=== PATIENT | male | born 1950 | race Caucasian/White ===

== ENCOUNTER 2018-01-13 20:35 | Emergency (ER) | payer MEDICARE, BC ==
[2018-01-13] MEDS ORDERED: Sodium Chloride 0.9% 10 ML Syringe FLUSH PRN (20:48)
[2018-01-13] MEDS ORDERED: Sodium Chloride 0.9% 500 ML IV SCH (21:00)
[2018-01-13] MEDS ORDERED: Sodium Chloride 0.9% 1,000 ML IV ONE (21:15)
--- NOTE | 2018-01-13 22:02 | EDM.PDOC ---
ED HPI GENERAL MEDICAL PROBLEM - General Chief Complaint: Syncope Stated Complaint: [facility] Time Seen by Provider: 01/13/18 20:40 Source of Information: Reports: Patient, EMS History Limitations: Reports: No Limitations - History of Present Illness INITIAL COMMENTS - FREE TEXT/NARRATIVE: The patient presents by [facility] for near syncope. He was eating at a restaurant in [facility] and he got lightheaded and nauseated. He went to the bathroom because he thought he was going to vomit but he did not. He laid down and when he tried to get up he was lightheaded. He had no headache, chest pain , shortness of breath or abdominal pain. He is feeling better now. He had this before. He has been seen for this and actually had it happen in the doctors office before. He has a history of an PA with stents. Onset: Gradual Duration: Minutes: Severity: Moderate Improves with: Reports: None Worsens with: Reports: None Associated Symptoms: Reports: Nausea/Vomiting. Denies: Chest Pain, Headaches, Shortness of Breath - Related Data Allergies Allergy/AdvReac Type Severity Reaction Status Date / Time No Known Allergies Allergy Verified 01/13/18 20:47 Past Medical History Cardiovascular History: Reports: Hypertension, PA, Stents, Syncope Gastrointestinal History: Reports: Gastritis - Infectious Disease History Infectious Disease History: Reports: Chicken Pox, Measles - Past Surgical History Cardiovascular Surgical History: Reports: Coronary Artery Stent GI Surgical History: Reports: Colonoscopy Social & Family History - Tobacco Use Smoking Status *Q: Never Smoker Second Hand Smoke Exposure: No - Caffeine Use Caffeine Use: Reports: None - Alcohol Use Number of Drinks Per Day: 1 Date of Last Drink: 01/13/18 Time of Last Drink: 19:45 - Recreational Drug Use Recreational Drug Use: No ED ROS GENERAL - Review of Systems Review Of Systems: See Below Constitutional: Reports: No Symptoms HEENT: Reports: No Symptoms Respiratory: Reports: No Symptoms Cardiovascular: Reports: Lightheadedness Endocrine: Reports: No Symptoms GI/Abdominal: Reports: No Symptoms : Reports: No Symptoms Musculoskeletal: Reports: No Symptoms Skin: Reports: No Symptoms - Physical Exam Exam: See Below Exam Limited By: No Limitations General Appearance: Alert, No Apparent Distress Ears: Normal External Exam Nose: Normal Inspection Head Exam: Atraumatic, Normocephalic Neck: Normal Inspection Respiratory/Chest: No Respiratory Distress, Lungs Clear, Normal Breath Sounds Cardiovascular: Regular Rate, Rhythm, No Edema, No Murmur GI/Abdominal: Soft, Non-Tender, No Organomegaly, No Mass Neuro Exam (Abbreviated): Alert, Oriented, No Motor/Sensory Deficits Back Exam: Normal Inspection Extremities: Normal Inspection EKG INTERPRETATION EKG Date: 01/13/18 Time: 20:35 Rhythm: NSR Rate (Beats/Min): 60 [place]: Normal P-Wave: Present QRS: Normal ST-T: Normal QT: Normal EKG Interpretation Comments: Q waves in the inferior leads Course - Vital Signs Last Recorded V/S: Last Vital Signs Temp 97.6 F 01/13/18 20:40 Pulse 58 L 01/13/18 20:40 Resp 18 01/13/18 20:40 BP 113/69 01/13/18 20:40 Pulse Ox 95 01/13/18 20:40 Orthostatic Blood Pressure [ 86/54 Standing] Orthostatic Blood Pressure [ 107/66 Sitting] Orthostatic Blood Pressure [ 106/68 Supine] - Orders/Labs/Meds Orders: Active Orders 24 hr Category Date Time Status Cardiac Monitoring [RC] . DIRECTED Care 01/13/18 20:48 Active EKG 12 Lead [EKG Documentation Completion] [RC] URGENT Care 01/13/18 20:42 Active Orthostatic Vital Signs [RC] ASDIRECTED Care 01/13/18 21:29 Active Peripheral IV Care [RC] . DIRECTED Care 01/13/18 20:48 Active Sodium Chloride 0.9% [Normal Saline] 500 ml Med 01/13/18 21:00 Active IV .BOLUS Sodium Chloride 0.9% [Saline Flush] Med 01/13/18 20:48 Active 10 ml FLUSH ASDIRECTED PRN Peripheral IV Insertion Adult [OM.PC] Stat Oth 01/13/18 20:48 Ordered Medication Orders Sodium Chloride (Normal Saline) 500 mls @ 1,000 mls/hr IV .BOLUS ARCHANA Last Admin: 01/13/18 20:53 Dose: 1,000 mls/hr Sodium Chloride (Saline Flush) 10 ml FLUSH ASDIRECTED PRN PRN Reason: Keep Vein Open Last Admin: 01/13/18 20:54 Dose: 10 ml Labs: Laboratory Tests 01/13/18 01/13/18 Range/Units 20:35 20:35 WBC 10.60 H (4.23-9.07) K/mm3 RBC 4.53 L (4.63-6.08) M/mm3 Hgb 14.4 (13.7-17.5) gm/L Hct 42.4 (40.1-51.0) % MCV 93.6 H (79.0-92.2) fl MCH 31.8 (25.7-32.2) pg MCHC 34.0 (32.2-35.5) g/dl RDW Std Deviation 44.6 H (35.1-43.9) fL Plt Count 211 (163-337) K/mm3 MPV 9.6 (9.4-12.3) fl Neut % (Auto) 62.6 (34.0-67.9) % Lymph % (Auto) 25.2 (21.8-53.1) % [place] % (Auto) 10.7 (5.3-12.2) % Eos % (Auto) 0.8 (0.8-7.0) Baso % (Auto) 0.4 (0.1-1.2) % Neut # (Auto) 6.64 H (1.78-5.38) K/mm3 Lymph # (Auto) 2.67 (1.32-3.57) K/mm3 [place] # (Auto) 1.13 H (0.30-0.82) K/mm3 Eos # (Auto) 0.09 (0.04-0.54) K/mm3 Baso # (Auto) 0.04 (0.01-0.08) K/mm3 Sodium 139 (136-145) mEq/L Potassium 3.7 (3.5-5.1) mEq/L Chloride 105 (98-107) mEq/L Carbon Dioxide 24 (21-32) mEq/L Anion Gap 13.7 (5-15) BUN 28 H (7-18) mg/dL Creatinine 1.1 (0.7-1.3) mg/dL Est Cr Clr Drug Dosing 63.91 mL/min Estimated GFR (MDRD) > 60 (>60) mL/min BUN/Creatinine Ratio 25.5 H (14-18) Glucose 107 (80-115) mg/dL Calcium 8.8 (8.5-10.1) mg/dL Total Bilirubin 0.3 (0.2-1.0) mg/dL AST 30 (15-37) U/L ALT 35 (16-63) U/L Alkaline Phosphatase 64 (46-116) U/L Troponin I < 0.017 (0.00-0.056) ng/mL Total Protein 7.1 (6.4-8.2) g/dl Albumin 3.9 (3.4-5.0) g/dl Globulin 3.2 gm/dL Albumin/Globulin Ratio 1.2 (1-2) Meds: Medications Generic Name Dose Route Start Last Admin Trade Name Freq PRN Reason Stop Dose Admin Sodium Chloride 500 mls @ 1,000 mls/hr 01/13/18 21:00 01/13/18 20:53 Normal Saline IV 1,000 mls/hr .BOLUS ARCHANA Administration Sodium Chloride 10 ml 01/13/18 20:48 01/13/18 20:54 Saline Flush FLUSH 10 ml ASDIRECTED PRN Administration Keep Vein Open Discontinued Medications Generic Name Dose Route Start Last Admin Trade Name Freq PRN Reason Stop Dose Admin Sodium Chloride 1,000 mls @ 1,000 mls/hr 01/13/18 21:15 Normal Saline IV 01/13/18 22:14 ONETIME ONE - Re-Assessments/Exams Free Text/Narrative Re-Assessment/Exam: 01/13/18 22:04 I ordered an IV NS 500mL bolus, EKG, and labs. He feels better. His EKG shows a NSR with no acute changes. His WBC was elevated at 10.6. His CMP looks good and his troponin is negative. I had him on the monitor and he had no problems. 01/13/18 22:15 Orthostatic BPs did drop some and he was given a bolus of NS. Departure - Departure Time of Disposition: 22:15 Disposition: Home, Self-Care 01 Condition: Good Clinical Impression: Near syncope, Orthostatic hypotension - Discharge Information *PRESCRIPTION DRUG MONITORING PROGRAM REVIEWED*: No *COPY OF PRESCRIPTION DRUG MONITORING REPORT IN PATIENT SHOAIB: No Referrals: Merry Willoughby MD [Primary Care Provider] - 1 Week Forms: ED Department Discharge Additional Instructions: Take you medication as prescribed for now. Call you doctor and let him know you had another episode. Please return if you are worse. - My Orders Last 24 Hours: My Active Orders 01/13/18 20:42 EKG 12 Lead [EKG Documentation Completion] [RC] URGENT 01/13/18 20:48 Cardiac Monitoring [RC] . DIRECTED Peripheral IV Care [RC] . DIRECTED Sodium Chloride 0.9% [Saline Flush] 10 ml FLUSH ASDIRECTED PRN Peripheral IV Insertion Adult [OM.PC] Stat 01/13/18 21:00 Sodium Chloride 0.9% [Normal Saline] 500 ml IV .BOLUS 01/13/18 21:29 Orthostatic Vital Signs [RC] ASDIRECTED - Assessment/Plan Last 24 Hours: My Active Orders 01/13/18 20:42 EKG 12 Lead [EKG Documentation Completion] [RC] URGENT 01/13/18 20:48 Cardiac Monitoring [RC] . DIRECTED Peripheral IV Care [RC] . DIRECTED Sodium Chloride 0.9% [Saline Flush] 10 ml FLUSH ASDIRECTED PRN Peripheral IV Insertion Adult [OM.PC] Stat 01/13/18 21:00 Sodium Chloride 0.9% [Normal Saline] 500 ml IV .BOLUS 01/13/18 21:29 Orthostatic Vital Signs [RC] ASDIRECTED
== END 2018-01-13 22:29 | disposition home or self-care (01) ==
LOC: JD.ED 20:35
DX: I95.1 Orthostatic hypotension (principal); I10 Essential (primary) hypertension
CPT/HCPCS: 36415; 80053; 84484; 85025; 93005; 96360; 99285; J7040; J7050; 93010; 99284-25